=== PATIENT | female | born 1955 | race Caucasian/White ===

== ENCOUNTER 2018-07-29 10:00 | Outpatient (CLI) | payer BC | END 2018-07-29 10:01 | disposition home or self-care (01) | LOC: BICMAMMO 10:00 | PROVIDERS: ATTEND Obstetrics & Gynecology | DX: Z12.31 Encounter for screening mammogram for malignant neoplasm of breast (principal) | CPT/HCPCS: 77063; 77067 ==

== ENCOUNTER 2020-09-11 14:01 | Outpatient (CLI) | payer MEDICARE, BC ==
--- NOTE | 2020-09-11 14:42 | BD ---
BONE DENSITOMETRY: Date: 09/11/2020 HISTORY: Postmenopausal screening. FINDINGS: Lumbar Spine: BMD (g/cm2) L1 1.209 T-Score: 2.0 L2 1.476 T-Score: 4.1 L3 1.295 T-Score: 1.9 L4 0.971 T-Score: -0.8 Total 1.231 T-Score: 1.7 Left Femoral Neck: 0.689 T-Score: -1.4 Total Femur: 0.939 T-Score: 0.0 IMPRESSION: 1. Bone mineral density of the femoral neck indicate osteopenia. 2. Bone mineral density of the lumbar spine is within normal range. 10 YEAR FRACTURE RISK: Major osteoporotic fracture: 8.5% Hip fracture: 0.8% POS: AH
== END 2020-09-11 14:02 | disposition home or self-care (01) ==
LOC: BICMAMMO 14:01
PROVIDERS: ATTEND Obstetrics & Gynecology
DX: Z13.820 Encounter for screening for osteoporosis (principal); M85.852 Other specified disorders of bone density and structure, left thigh
CPT/HCPCS: 77080

== ENCOUNTER 2022-12-24 13:57 | Outpatient (CLI) | payer MEDICARE | END 2022-12-24 13:58 | disposition home or self-care (01) | LOC: BICMAMMO 13:57 | PROVIDERS: ATTEND Family Medicine | DX: M81.0 Age-related osteoporosis without current pathological fracture (principal); M85.851 Other specified disorders of bone density and structure, right thigh; M85.852 Other specified disorders of bone density and structure, left thigh | CPT/HCPCS: 77080 ==

== ENCOUNTER 2024-06-17 09:07 | Outpatient (CLI) | payer MEDICARE | END 2024-06-17 09:08 | disposition home or self-care (01) | LOC: BICCT 09:07 | PROVIDERS: ATTEND Family Medicine | DX: Z12.2 Encounter for screening for malignant neoplasm of respiratory organs (principal); Z87.891 Personal history of nicotine dependence | CPT/HCPCS: 71271 ==

== ENCOUNTER 2024-12-20 11:05 | Outpatient (CLI) | payer MEDICARE | END 2024-12-20 11:06 | disposition home or self-care (01) | LOC: BICCT 11:05 | PROVIDERS: ATTEND Family Medicine | DX: Z12.2 Encounter for screening for malignant neoplasm of respiratory organs (principal); Z87.891 Personal history of nicotine dependence; R91.8 Other nonspecific abnormal finding of lung field | CPT/HCPCS: 71271 ==